=== PATIENT | male | born 1980 | race Caucasian/White ===

== ENCOUNTER 2019-08-06 17:16 | Emergency (ER) | payer SELFPAY ==
[2019-08-06 17:57] VITALS: BP 127/72; PULSE 59; RESP 26; TEMP 36.4; O2SAT 100; BMI 22.4
--- NOTE | 2019-08-06 18:07 | ED_ITS ---
Entered by Padmaja Michaud, acting as scribe for Juan Bryan MD, [facility] [place] Aug 06, 2019 17:16 HPI - Allergic Reaction General: Chief complaint: Allergic Reaction Stated complaint: ABD PAIN, POSS REACTION Time Seen by Provider: 08/06/19 18:07 Source: patient Mode of arrival: ambulatory Limitations: no limitations History of Present Illness: HPI narrative: 39 yo Male presents to ED with complaint of vomiting, diarrhea, and jaundice. Pt's caregiver states that the patient has had chills and been lightheaded. Pt states he has body aches. Pt's caregiver states that she looked it up on the [facility] website and she believes that the patient may be having an allergic reaction to tylenol. Pt's caregiver states that the last time the patient had an episode like this, the patient had taken tylenol. complaint: allergic reaction and other (vomiting, diarrhea, jaundice) Onset (ago): hour(s) Exposure: unknown Associated symptoms: Reports abdominal pain, dizziness and vomiting; Deny hoarseness Severity: moderate Treatment prior to arrival: none Previous Allergic Reaction History: prior ED visit(s) Review of Systems General: Reports: 10 or more systems reviewed and unremarkable except in HPI and below Const: Reports: chills and body aches; Denies: fever Eyes: Denies: change in vision or blurry vision ENMT: Denies: throat pain, enlarged tonsils, painful swallowing, hoarseness, mouth pain or swelling of lips/tongue Card: Denies: chest pain, palpitations, irregular heart rhythm, edema or swelling of feet/ankles Resp: Denies: shortness of breath, productive cough or non-productive cough GI: Reports: abdominal pain and vomiting : Denies: flank pain, painful urination, urinary frequency, urinary urgency or urinary hesitancy Musc: Denies: neck pain, back pain or extremity swelling Skin/Breast: Denies: rash, itching or redness Neuro: Reports: dizziness Endo: Denies: excessive urination, excessive thirst or tired all the time [facility] ED PFSH: Social History Smoking and tobacco status: current every day smoker Physical Exam Const: COMMON NORMALS: average body habitus, oriented x3, no limitations, healthy appearing, alert and well nourished GENERAL APPEARANCE: in distress and ill appearing HENMT: COMMON NORMALS: normocephalic, head/scalp atraumatic and moist oral mucous membranes HEAD & SCALP: normocephalic and atraumatic Eye: COMMON NORMALS: PERRL, EOMs intact bilaterally, conjunctivae normal and no scleral icterus CONJUNCTIVA: Yes conjunctivae normal PUPIL: Yes PERRL Neck/C-Spine: COMMON NORMALS: full ROM, supple, no meningeal signs, no JVD and no carotid bruits Chest: COMMONS NORMALS: inspection of chest normal and palpation of chest normal Resp: COMMON NORMALS: normal respiratory effort, no retractions, no use of accessory muscles, clear to auscultation bilaterally and percussion normal AUSCULTATION: clear to auscultation bilaterally PERCUSSION: percussion normal Cardio: COMMON NORMALS: no JVD, regular rate, regular rhythm, S1 normal heart sound, S2 normal heart sound, no gallops, no clicks, no murmurs, no rub and peripheral pulses 2+ throughout RATE: regular rate RHYTHM: regular rhythm HEART SOUNDS: S1 normal and S2 normal PERIPHERAL PULSES: pulses 2+ throughout GI: COMMON NORMALS: normal to inspection, nondistended, normoactive bowel sounds, soft to palpation, no hepatosplenomegaly, no masses and no bruits PALPATION: Yes soft, Yes tender (epigastric) and Yes no hepatosplenomegaly : COMMON NORMALS: Yes no CVA tenderness BLADDER/KIDNEY EXAM: Yes no CVA tenderness Back/Pelvis: COMMON NORMALS: no CVA tenderness Extremity: COMMON NORMALS: normal to inspection, full ROM, normal capillary refill, no calf tenderness and no pedal edema Neuro: COMMON NORMALS: oriented x3 SENSORIUM/ORIENTATION: Yes alert M ENINGEAL SIGNS: Yes no meningeal signs Skin: COMMON NORMALS: no rashes or lesions noted, no wounds, skin turgor normal, no jaundice, no petechiae and no mottling GENERAL SKIN EXAM: no rashes or lesions noted and turgor normal Course Vital Signs: Vital signs: Vital Signs Temperature 97.5 F L 08/06/19 17:57 Pulse Rate 55 L 08/06/19 23:04 Respiratory Rate 18 08/06/19 23:04 Blood Pressure 143/71 08/06/19 23:04 Pulse Oximetry 100 08/06/19 23:04 MDM - Allergic Reaction MDM Narrative: Medical decision making narrative: Patient with symptoms consistent with cannabinoid hyperemesis syndrome. Also probably has gastritis. He is advised to follow-up with his primary care provider for referral for colonoscopy. He was dehydrated here and received 2 L of normal saline. He also received couple of doses of antiemetics after which his symptoms improved. He is discharged home on oral antiemetics. Medical Records: Attestation: I reviewed the patient's medical records. Lab Data: Attestation: I reviewed the patient's lab results. Labs: Lab Results 08/06/19 08/06/19 08/06/19 Range/Units 18:10 18:10 21:11 WBC 8.4 (4.0-10.0) 10^3/ uL RBC 5.23 (4.1-5.3) 10^6/u L Hgb 17.2 H (11.7-16.6) g/dL Hct 48.8 (42.0-52.0) % MCV 93.3 (80-94) fL MCH 32.9 (28.0-34.0) pg MCHC 35.2 (30.0-36.0) g/dL RDW 12.3 (12.1-15.1) % Plt Count 192 (130-400) 10^3/c mm MPV 11.0 H (7.4-10.4) fL Neut % (Auto) 79.0 % Lymph % (Auto) 12.3 % Sumter % (Auto) 8.0 % Eos % (Auto) 0.1 % Baso % (Auto) 0.1 % Neut # (Auto) 6.6 (1.8-7.7) 10^3/u L Lymph # (Auto) 1.0 (0.8-4.8) 10^3/u L Sumter # (Auto) 0.7 (0.2-0.9) 10^3/u L Eos # (Auto) 0.0 (0.0-0.8) 10^3/u L Baso # (Auto) 0.0 (0.0-0.1) 10^3/u L Nucleated RBC % (a uto) 0 % Nucleated RBCs # 0.0 /100WBC Sodium 131 L (136-145) mmol/L Potassium 3.6 (3.5-5.1) mmol/L Chloride 92 L (98-107) mmol/L Carbon Dioxide 18 L (22-29) mmol/L Anion Gap 24.6 H (5-19) BUN 19 (6-20) mg/dL Creatinine 1.2 (0.7-1.2) mg/dL GFR Calculation 66.7 L (90-130) mL/min Glucose 136 H (65-115) mg/dL Calcium 9.8 (8.5-10.5) mg/dL Total Bilirubin 0.5 (0.15-1.2) mg/dL AST 28 (0-40) U/L ALT 12 (0-41) U/L Alkaline Phosphata se 49 (40-130) IU/L Total Protein 7.5 (6.6-8.7) g/dL Albumin 4.7 (3.5-5.2) g/dL Globulin 2.8 (1.3-4.6) g/dL Lipase 27 (13-60) U/L Urine Color Yellow (Yellow) Urine Appearance Clear (CLEAR) Urine pH 6.5 (5-7) Ur Specific Gravit y 1.005 (1.005-1.030) Urine Protein 1+ H (Negative) Urine Glucose (UA) Norm (Normal) Urine Ketones 2+ H (Negative) Urine Blood Neg (Negative) Urine Nitrate Negative (Negative) Urine Bilirubin 1+ H (NEGATIVE) Urine Urobilinogen 1 H (Negative) mg/dL Ur Leukocyte Alexandra ase Negative (Negative) Urine RBC 0-4 H (0-2) /hpf Urine WBC 0-4 H (0-5) /hpf Ur Squamous Epith Cells 0-4 H (0-5) Urine Bacteria 1+ H (NONE) Urine Mucus 1+ Urine Opiates Scre en (Negative) ng/mL Acetaminophen < 5.0 L (10-30) ug/mL Ur Barbiturates Sc reen (Negative) ng/mL Ur Phencyclidine S crn (Negative) ng/mL Ur Amphetamines Sc reen (Negative) ng/mL U Benzodiazepines Scrn (Negative) ng/mL Urine Cocaine Scre en (Negative) ng/mL U Marijuana (THC) Screen (Negative) ng/mL 08/06/19 Range/Units 21:11 WBC (4.0-10.0) 10^3/ uL RBC (4.1-5.3) 10^6/u L Hgb (11.7-16.6) g/dL Hct (42.0-52.0) % MCV (80-94) fL MCH (28.0-34.0) pg MCHC (30.0-36.0) g/dL RDW (12.1-15.1) % Plt Count (130-400) 10^3/c mm MPV (7.4-10.4) fL Neut % (Auto) % Lymph % (Auto) % Sumter % (Auto) % Eos % (Auto) % Baso % (Auto) % Neut # (Auto) (1.8-7.7) 10^3/u L Lymph # (Auto) (0.8-4.8) 10^3/u L Sumter # (Auto) (0.2-0.9) 10^3/u L Eos # (Auto) (0.0-0.8) 10^3/u L Baso # (Auto) (0.0-0.1) 10^3/u L Nucleated RBC % (a uto) % Nucleated RBCs # /100WBC Sodium (136-145) mmol/L Potassium (3.5-5.1) mmol/L Chloride (98-107) mmol/L Carbon Dioxide (22-29) mmol/L Anion Gap (5-19) BUN (6-20) mg/dL Creatinine (0.7-1.2) mg/dL GFR Calculation (90-130) mL/min Glucose (65-115) mg/dL Calcium (8.5-10.5) mg/dL Total Bilirubin (0.15-1.2) mg/dL AST (0-40) U/L ALT (0-41) U/L Alkaline Phosphata se (40-130) IU/L Total Protein (6.6-8.7) g/dL Albumin (3.5-5.2) g/dL Globulin (1.3-4.6) g/dL Lipase (13-60) U/L Urine Color (Yellow) Urine Appearance (CLEAR) Urine pH (5-7) Ur Specific Gravit y (1.005-1.030) Urine Protein (Negative) Urine Glucose (UA) (Normal) Urine Ketones (Negative) Urine Blood (Negative) Urine Nitrate (Negative) Urine Bilirubin (NEGATIVE) Urine Urobilinogen (Negative) mg/dL Ur Leukocyte Alexandra ase (Negative) Urine RBC (0-2) /hpf Urine WBC (0-5) /hpf Ur Squamous Epith Cells (0-5) Urine Bacteria (NONE) Urine Mucus Urine Opiates Scre en Negative (Negative) ng/mL Acetaminophen (10-30) ug/mL Ur Barbiturates Sc reen Negative (Negative) ng/mL Ur Phencyclidine S crn Negative (Negative) ng/mL Ur Amphetamines Sc reen Negative (Negative) ng/mL U Benzodiazepines Scrn Negative (Negative) ng/mL Urine Cocaine Scre en Negative (Negative) ng/mL U Marijuana (THC) Screen Positive H (Negative) ng/mL Imaging Data^: CT Abd/Pel: Radiologist's impression: [place] [address] CT Scan Report Signed Patient: Ramos Marin #: [id number] : 1980Acct#:[id number] Age/Sex: 39 / MADM Date: 08/06/19 Loc: ERRoom/Bed: Attending Dr: Ordering Provider/Ordering MD: Juan Bryan MD, [facility] [place] Date of Service: 08/06/19 Procedure(s): CT abdomen pelvis w con* [id number] Accession Number(s): [id number] Report Number: [id number] PROCEDURE INFORMATION: Exam: CT Abdomen And Pelvis With Contrast Exam date and time: 08/06/2019 6:55 PM Age: 39 years old Clinical indication: Nausea and vomiting; Abdominal pain; Epigastric; Additional info: Epigastric pain TECHNIQUE: Imaging protocol: Computed tomography of the abdomen and pelvis with intravenous contrast. Total DLP: 504.95 mGy-cm Radiation optimization: All CT scans at this facility use at least one of these dose optimization techniques: automated exposure control; mA and/or kV adjustment per patient size (includes targeted exams where dose is matched to clinical indication); or iterative reconstruction. Contrast material: OMNI 300; Contrast volume: 95 ml; Contrast route: IV; COMPARISON: CT abdomen pelvis w con* [id number] 03/30/2019 4:50 AM FINDINGS: Liver: Normal. No mass. Gallbladder and bile ducts: Normal. No calcified stones. No ductal dilation. Pancreas: Normal. No ductal dilation. Spleen: Normal. No splenomegaly. Adrenals: Normal. No mass. Kidneys and ureters: Normal. No hydronephrosis. Stomach and bowel: Mild wall thickening is observed in the gastric antrum. No intestinal obstruction. Appendix: No evidence of appendicitis. Intraperitoneal space: Unremarkable. No free air. No significant fluid collection. Vasculature: Unremarkable. No abdominal aortic aneurysm. Lymph nodes: Unremarkable. No enlarged lymph nodes. Bladder: Unremarkable as visualized. Reproductive: Unremarkable as visualized. Bones/joints: Unremarkable. No acute fracture. Soft tissues: Unremarkable. CT/CT abdomen pelvis w con* [id number] IMPRESSION: Possible mild gastric antritis, correlate clinically. Radiation Dose CTDIVOL = (mGy): DLP = 504.95 (mGy-cm) Dictated By:Percy Tovar MD Signed By:Percy Tovar MDSigned Date/Time:08/06/191946 DD/ 44 Discharge Plan Discharge Patient Disposition: Home, Self-Care Clinical Impression: Cannabis hyperemesis syndrome concurrent with and due to cannabis abuse Gastritis Qualifiers: Gastritis type: unspecified gastritis Chronicity: acute Gastritis bleeding: without bleeding Qualified Code(s): K29.00 - Acute gastritis without bleeding Condition: Stable Prescriptions: New promethazine 25 mg tablet 25 mg PO TID PRN (Reason: nausea and vomiting) Qty: 30 RF: 0 Discharge Orders: Discharge Order (Routine); Ordered 08/06/19 Ordered By: Juan Bryan Referrals: Kyra Mcbride FNP-C [Primary Care Provider] - 4-7 days Patient Instructions: Acute Nausea and Vomiting (ED) Activity Restrictions/Additional Instructions: Return for any new or worsening symptoms. Follow-up with your primary care provider within 1 week. Take the medication as needed for nausea or vomiting. Drink plenty of fluids to keep well-hydrated. 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 [place] Aug 06, 2019 17:16
[2019-08-06 18:12] VITALS: O2SAT 100
--- NOTE | 2019-08-06 18:34 | CTR_ITS ---
PROCEDURE INFORMATION: Exam: CT Abdomen And Pelvis With Contrast Exam date and time: 08/06/2019 6:55 PM Age: 39 years old Clinical indication: Nausea and vomiting; Abdominal pain; Epigastric; Additional info: Epigastric pain TECHNIQUE: Imaging protocol: Computed tomography of the abdomen and pelvis with intravenous contrast. Total DLP: 504.95 mGy-cm Radiation optimization: All CT scans at this facility use at least one of these dose optimization techniques: automated exposure control; mA and/or kV adjustment per patient size (includes targeted exams where dose is matched to clinical indication); or iterative reconstruction. Contrast material: OMNI 300; Contrast volume: 95 ml; Contrast route: IV; COMPARISON: CT abdomen pelvis w con* [id number] 03/30/2019 4:50 AM FINDINGS: Liver: Normal. No mass. Gallbladder and bile ducts: Normal. No calcified stones. No ductal dilation. Pancreas: Normal. No ductal dilation. Spleen: Normal. No splenomegaly. Adrenals: Normal. No mass. Kidneys and ureters: Normal. No hydronephrosis. Stomach and bowel: Mild wall thickening is observed in the gastric antrum. No intestinal obstruction. Appendix: No evidence of appendicitis. Intraperitoneal space: Unremarkable. No free air. No significant fluid collection. Vasculature: Unremarkable. No abdominal aortic aneurysm. Lymph nodes: Unremarkable. No enlarged lymph nodes. Bladder: Unremarkable as visualized. Reproductive: Unremarkable as visualized. Bones/joints: Unremarkable. No acute fracture. Soft tissues: Unremarkable. CT/CT abdomen pelvis w con* [id number] IMPRESSION: Possible mild gastric antritis, correlate clinically. Radiation Dose CTDIVOL = (mGy): DLP = 504.95 (mGy-cm)
[2019-08-06 18:46] LABS: Basophils % 0.1 %; Eosinophils % 0.1 %; Hematocrit 48.8 % (42.0-52.0); Hemoglobin 17.2 g/dL (11.7-16.6); Lymphocytes % 12.3 %; Mean Corpuscular HGB Conc 35.2 g/dL (30.0-36.0); Mean Corpuscular Hemoglobin 32.9 pg (28.0-34.0); Mean Corpuscular Volume 93.3 fL (80-94); Monocytes # 0.7 10^3/uL (0.2-0.9); Neutrophils # 6.6 10^3/uL (1.8-7.7); Nucleated Red Blood Cells % 0 %; Platelet Count 192 10^3/cmm (130-400); Red Blood Count 5.23 10^6/uL (4.1-5.3); Red Cell Distribution Width 12.3 % (12.1-15.1); White Blood Count 8.4 10^3/uL (4.0-10.0)
[2019-08-06] MEDS: ondansetron 2 mg/ML SDV 2 mL 4 MG IVP (18:50)
[2019-08-06] MEDS: famotidine 20 mg/2 mL INJ 40 MG IVP (18:50)
[2019-08-06 19:07] LABS: Alanine Aminotransferase 12 U/L (0-41); Albumin Level 4.7 g/dL (3.5-5.2); Alkaline Phosphatase 49 IU/L (40-130); Anion Gap 24.6 (5-19); Aspartate Amino Transferase 28 U/L (0-40); Blood Urea Nitrogen 19 mg/dL (6-20); Calcium 9.8 mg/dL (8.5-10.5); Carbon Dioxide 18 mmol/L (22-29); Chloride 92 mmol/L (98-107); Globulin 2.8 g/dL (1.3-4.6); Glomerular Filtration Rate 66.7 mL/min (90-130); Glucose 136 mg/dL (65-115); Lipase 27 U/L (13-60); Potassium 3.6 mmol/L (3.5-5.1); Sodium 131 mmol/L (136-145); Total Bilirubin 0.5 mg/dL (0.15-1.2); Total Protein 7.5 g/dL (6.6-8.7)
[2019-08-06] MEDS: iohexol 300 mg/mL 100 mL Btl IV (19:11)
[2019-08-06] MEDS: sodium chloride 0.9% 1,000 ML 999 ML IV ×2 (19:25→21:08)
[2019-08-06 19:32] LABS: Acetaminophen < 5.0 ug/mL (10-30)
[2019-08-06] MEDS: metoclopramide 5 mg/mL SDV 2 mL 10 MG IVP (19:45)
[2019-08-06 21:38] LABS: Add Urine Culture? No; Add Urine Microscopic? YES; Bacteria Urine 1+; Bilirubin Urine 1+ (NEGATIVE); Blood Urine Neg (Negative); Glucose Urine UA Norm (Normal); Ketones Urine 2+ (Negative); Leukocyte Esterase Urine Negative (Negative); Mucus Urine 1+; Nitrate Urine Negative (Negative); Protein Urine 1+ (Negative); RBC Urine 0-4 /hpf (0-2); Specific Gravity, Urine 1.005 (1.005-1.030); Squamous Epithelial Cell Urine 0-4 (0-5); Urine Appearance Clear (CLEAR); Urine Color Yellow (Yellow); Urobilinogen Urine 1 mg/dL (Negative); WBC Urine 0-4 /hpf (0-5); pH Urine 6.5 (5-7)
[2019-08-06 21:40] VITALS: BP 118/68; PULSE 72; RESP 18; O2SAT 99
[2019-08-06 21:55] LABS: Amphetamines Screen Urine Negative (Negative); Barbiturates Screen Urine Negative (Negative); Benzodiazepines Screen Urine Negative (Negative); Cocaine Screen Urine Negative (Negative); Opiate Screen Urine Negative (Negative); PCP Screen Urine Negative (Negative); THC Screen Urine Positive (Negative)
[2019-08-06 23:04] VITALS: BP 143/71; PULSE 55; RESP 18; O2SAT 100
== END 2019-08-06 23:05 | disposition home or self-care (01) ==
PROVIDERS: Emergency Provider Family Medicine; Family Provider Nurse Practitioner Family; PCP Nurse Practitioner Family
DX: R11.10 Vomiting, unspecified (principal); F12.188 Cannabis abuse with other cannabis-induced disorder; K29.70 Gastritis, unspecified, without bleeding; F17.200 Nicotine dependence, unspecified, uncomplicated
CPT/HCPCS: 74177; 80053; 80307; 81001; 83690; 85025; 96360; 96361; 96374; 96375; 99283; A9270; J2405; J2765; J3490; J7030; Q9967

== ENCOUNTER 2021-11-09 10:23 | Emergency (ER) | payer SELFPAY ==
[2021-11-09 10:37] VITALS: BP 170/76; PULSE 50; RESP 22; O2SAT 100; BMI 24.4
--- NOTE | 2021-11-09 10:54 | CTR_ITS ---
PROCEDURE INFORMATION: Exam: CTA Chest With Contrast Exam date and time: 11/09/2021 12:02 PM Age: 41 years old Clinical indication: Abdominal pain; Generalized; Chest pressure; Additional info: Chest/abd pain look at the aorta TECHNIQUE: Imaging protocol: Computed tomographic angiography of the chest with contrast. 3D rendering (Not supervised by radiologist): MIP and/or 3D reconstructed images were created by the technologist. Radiation optimization: All CT scans at this facility use at least one of these dose optimization techniques: automated exposure control; mA and/or kV adjustment per patient size (includes targeted exams where dose is matched to clinical indication); or iterative reconstruction. Contrast material: OMNI 350; Contrast volume: 95 ml; Contrast route: INTRAVENOUS (IV); COMPARISON: [place] Chest 1 [place] [id number] 03/30/2019 3:56 AM RADIATION DOSE METRICS: Total DLP (mGy-cm): 1348.36 FINDINGS: No evidence for pulmonary embolus. Thoracic aorta is normal without evidence for dissection or aneurysm. Lungs are normal. No consolidation. No pneumothorax. No pleural effusion. Heart size is normal. Bones/joints: Unremarkable. No acute fracture. Soft tissues: Unremarkable. PROCEDURE INFORMATION: Exam: CT Abdomen And Pelvis With Contrast Exam date and time: 11/09/2021 12:02 PM Age: 41 years old Clinical indication: Abdominal pain; Generalized; Chest pressure; Additional info: Chest/abd pain look at the aorta TECHNIQUE: Imaging protocol: Computed tomography of the abdomen and pelvis with contrast. 3D rendering (Not supervised by radiologist): MIP and/or 3D reconstructed images were created and reviewed. Radiation optimization: All CT scans at this facility use at least one of these dose optimization techniques: automated exposure control; mA and/or kV adjustment per patient size (includes targeted exams where dose is matched to clinical indication); or iterative reconstruction. Contrast material: OMNI 350; Contrast volume: 95 ml; Contrast route: INTRAVENOUS (IV); COMPARISON: CT abdomen pelvis w con* [id number] 08/06/2019 7:24 PM RADIATION DOSE METRICS: Total DLP (mGy-cm): 1348.36 FINDINGS: Aorta: No aortic aneurysm. No aortic dissection. Celiac trunk and mesenteric arteries: No occlusion or significant stenosis. Renal arteries: No occlusion or significant stenosis. Right iliac arteries: No occlusion or significant stenosis. Left iliac arteries: No occlusion or significant stenosis. Liver: No mass. Gallbladder and bile ducts: Unremarkable. No calcified stones. No ductal dilation. Pancreas: Unremarkable. No mass. No ductal dilation. Spleen: Small incidental splenule. Adrenal glands: Unremarkable. No mass. Kidneys and ureters: Unremarkable. No solid mass. No hydronephrosis. Stomach and bowel: Unremarkable. No obstruction. No mucosal thickening. Appendix: A normal appendix is identified. Intraperitoneal space: Unremarkable. No free air. No significant fluid collection. Lymph nodes: Unremarkable. No enlarged lymph nodes. Urinary bladder: Unremarkable. No mass. Reproductive: Unremarkable as visualized. Bones/joints: No acute fracture. Soft tissues: Unremarkable. CT/CT angio chest abdomen pelvis IMPRESSION: No acute findings. No evidence for pulmonary embolus. Thoracic aorta is normal. IMPRESSION: No acute findings.
--- NOTE | 2021-11-09 10:55 | ECG_ITS ---
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 Measurements Intervals [place] Rate: 48 P: 54 FL: 159 QRS: 73 QRSD: 122 T: 56 QT: 481 QTc: 432 Interpretive Statements SINUS BRADYCARDIA WITH SINUS ARRHYTHMIA RIGHT BUNDLE BRANCH BLOCK [120+ ms QRS DURATION, UPRIGHT V1, 40+ ms S IN I/aVL/V4/V5/V6] PROBABLE INFERIOR MYOCARDIAL INFARCTION , PROBABLY OLD [35 ms Q WAVE IN II/aVF] Compared to ECG 03/30/2019 09:55:54 Right bundle-branch block now present Sinus rhythm no longer present Ventricular premature complex(es) no longer present Incomplete right bundle-branch block no longer present Myocardial infarct finding still present Electronically Signed On 11-09-2021 20:26:38 CDT by Yunior Lara M.D. [email or web address]
--- NOTE | 2021-11-09 10:55 | W.ED.SOB ---
HPI - SOB/Dyspnea General: Chief Complaint: Shortness of Breath/Dyspnea Stated Complaint: SOB; L arm tingling; n/v Time Seen by Provider: 11/09/21 10:50 History of Present Illness: HPI Narrative: 41-year-old presents due to chest pain abdominal pain shortness of breath. States this started this morning. Left-sided chest and both upper and lower abdominal pain. States it is achy. Does report nausea and nonbloody nonbilious emesis. Denies any exertional pleuritic component. Denies any radiation. Denies any lower extremity pain or swelling. Denies fevers or chills. Does admit to drinking about 2 tall boys per day. Also has noted yellowing of skin. Denies any dysuria or urethral discharge. Review of Systems Narrative: - CONSTITUTIONAL: Denies weight loss, fever and chills. - HEENT: Denies changes in vision and hearing. - RESPIRATORY: As above - CV: As above - GI: As above - : Denies dysuria and urinary frequency. - MSK: Denies myalgia and joint pain. - SKIN: Denies rash and pruritus. - NEUROLOGICAL: Denies headache, weakness, numbness and syncope. - PSYCHIATRIC: Denies suicidal ideation [facility] ED PFSH: Social History Smoking and tobacco status: current every day smoker Physical Exam Narrative: EXAM NARRATIVE: - GENERAL: Alert and oriented x 3. No acute distress. Well-nourished. - EYES: EOMI. Anicteric. - HENT: Atraumatic, no C-spine tenderness. Moist mucous membranes. No scleral icterus. No cervical lymphadenopathy. - LUNGS: Clear to auscultation bilaterally. No accessory muscle use. Equal lung sounds bilaterally. No respiratory distress. - CARDIOVASCULAR: Regular rate and rhythm. No murmur. No JVD. - ABDOMEN: Soft, tender in left upper and lower quadrants, non-distended. Negative CVA tenderness bilaterally, no rebound or guarding, negative Patterson sign. No palpable masses. - EXTREMITIES: No edema. Non-tender. - SKIN: No rashes or lesions. Warm. Mildly jaundiced. - NEUROLOGIC: No meningismus or focal neurological deficits. CN II-XII grossly intact. - PSYCHIATRIC: Cooperative. Appropriate mood and affect. Course Vital Signs: Vital signs: Vital Signs Pulse Rate 45 L 11/09/21 13:41 Respiratory Rate 16 11/09/21 13:41 Blood Pressure 142/86 11/09/21 13:41 Pulse Oximetry 100 11/09/21 13:41 MDM - SOB/Dyspnea Medical Decision Making 41-year-old presents with chest pain abdominal pain nausea and nonbloody nonbilious emesis. Initially appears mildly jaundiced but bilirubin is within normal. Remainder of LFTs are also within normal. EKG and troponins do not reveal any sign of acute ischemic abnormality. CT scan does not reveal any sign of dissection PE obstruction or other acute abnormality. UDS positive for cannabinoids. Strongly suspect cyclic vomiting syndrome. Remainder of lab work unremarkable. Prescription for Reglan provided. Tolerated p.o. challenge. At this time I believe patient would be safe for discharge and outpatient follow-up. Return precautions provided. Plan was reviewed with the patient who expressed understanding. Questions answered. Patient will follow up with PCP. Patient discharged in stable condition. Lab Data : 11/09/21 10:50 11/09/21 10:50 Labs/Radiology: Radiology Impressions Chest/Abdomen/Pelvis CTA 11/09/21 10:54 IMPRESSION: No acute findings. No evidence for pulmonary embolus. Thoracic aorta is normal. IMPRESSION: No acute findings. Laboratory Results WBC 10.4 10^3/uL (4.0-10.0) H 11/09/21 10:50 RBC 5.28 10^6/uL (4.1-5.3) 11/09/21 10:50 Hgb 17.3 g/dL (11.7-16.6) H 11/09/21 10:50 Hct 48.6 % (42.0-52.0) 11/09/21 10:50 MCV 92.0 fl (80-94) 11/09/21 10:50 MCH 32.8 pg (28.0-34.0) 11/09/21 10:50 MCHC 35.6 g/dL (30.0-36.0) 11/09/21 10:50 RDW 13.5 % (12.1-15.1) 11/09/21 10:50 Plt Count 239 10^3/cmm (130-400) 11/09/21 10:50 MPV 10.7 fL (7.4-10.4) H 11/09/21 10:50 Neut % (Auto) 77.3 % 11/09/21 10:50 Lymph % (Auto) 17.2 % 11/09/21 10:50 [place] % (Auto) 3.8 % 11/09/21 10:50 Eos % (Auto) 0.6 % 11/09/21 10:50 Baso % (Auto) 0.5 % 11/09/21 10:50 Neut # (Auto) 8.04 10^3/uL (1.8-7.7) H 11/09/21 10:50 Lymph # (Auto) 1.8 10^3/uL (0.8-4.8) 11/09/21 10:50 [place] # (Auto) 0.4 10^3/uL (0.2-0.9) 11/09/21 10:50 Eos # (Auto) 0.1 10^3/uL (0.0-0.8) 11/09/21 10:50 Baso # (Auto) 0.1 10^3/uL (0.0-0.1) 11/09/21 10:50 Nucleated RBC % (auto) 0 % 11/09/21 10:50 Nucleated RBCs # 0.0 /100WBC 11/09/21 10:50 Sodium 135 mmol/L (136-145) L 11/09/21 10:50 Potassium 3.9 mmol/L (3.5-5.1) 11/09/21 10:50 Chloride 99 mmol/L (98-107) 11/09/21 10:50 Carbon Dioxide 17 mmol/L (22-29) L 11/09/21 10:50 Anion Gap 22.9 (5-19) H 11/09/21 10:50 BUN 13 mg/dL (6-20) 11/09/21 10:50 Creatinine 1.1 mg/dL (0.7-1.2) 11/09/21 10:50 GFR Calculation 73.1 mL/min (90-130) L 11/09/21 10:50 Glucose 121 mg/dL (65-115) H 11/09/21 10:50 Calculated Osmolality 281 mOsm/kg (285-295) L 11/09/21 10:50 Lactate 2.0 mmol/L (0.5-2.2) 11/09/21 11:25 Calcium 9.9 mg/dL (8.5-10.5) 11/09/21 10:50 Total Bilirubin 0.7 mg/dL (0.15-1.2) 11/09/21 10:50 AST 21 U/L (0-40) 11/09/21 10:50 ALT 15 U/L (0-41) 11/09/21 10:50 Alkaline Phosphatase 58 IU/L (40-130) 11/09/21 10:50 Troponin T Baseline 6 ng/L (0-15) 11/09/21 10:50 Troponin T 120 Minute 6.00 ng/L (0-15) 11/09/21 12:57 Delta Troponin T 0 ABS# (0-10) 11/09/21 12:57 Total Protein 7.5 g/dL (6.6-8.7) 11/09/21 10:50 Albumin 4.9 g/dL (3.5-5.2) 11/09/21 10:50 Globulin 2.6 g/dL (1.3-4.6) 11/09/21 10:50 Lipase 21 U/L (13-60) 11/09/21 10:50 Urine Color Yellow (Yellow) 11/09/21 13:35 Urine Appearance Clear (CLEAR) 11/09/21 13:35 Urine pH 7 (5-7) 11/09/21 13:35 Ur Specific [place] 1.005 (1.005-1.030) 11/09/21 13:35 Urine Protein Neg (Negative) 11/09/21 13:35 Urine Glucose (UA) Norm (Normal) 11/09/21 13:35 Urine Ketones 1+ (Negative) H 11/09/21 13:35 Urine Blood Neg (Negative) 11/09/21 13:35 Urine Nitrate Negative (Negative) 11/09/21 13:35 Urine Bilirubin Neg (Negative) 11/09/21 13:35 Urine Urobilinogen Norm mg/dL (Negative) 11/09/21 13:35 Ur Leukocyte Esterase Negative (Negative) 11/09/21 13:35 Urine RBC None /hpf (0-2) 11/09/21 13:35 Urine WBC Rare /hpf (0-5) 11/09/21 13:35 Ur Squamous Epith Cells None /hpf (0-5) 11/09/21 13:35 Amorphous Sediment Not Reportable 11/09/21 13:35 Urine Bacteria Trace /hpf (NONE) 11/09/21 13:35 Urine Opiates Screen Negative ng/mL (Negative) 11/09/21 13:35 Ur Barbiturates Screen Negative ng/mL (Negative) 11/09/21 13:35 Ur Phencyclidine Scrn Negative ng/mL (Negative) 11/09/21 13:35 Ur Amphetamines Screen Negative ng/mL (Negative) 11/09/21 13:35 U Benzodiazepines Scrn Negative ng/mL (Negative) 11/09/21 13:35 Urine Cocaine Screen Negative ng/mL (Negative) 11/09/21 13:35 U Marijuana (THC) Screen Positive ng/mL (Negative) H 11/09/21 13:35 EKG Data EKG 1: Other EKG Comments: Sinus bradycardia with sinus arrhythmia, rate of 48, with bundle branch block, no sign of acute ischemia or other acute abnormality. Discharge Plan Discharge Patient Disposition: Home Clinical Impression: Cyclic vomiting syndrome Condition: Stable Prescriptions: New Reglan 10 mg tablet 10 mg PO Q8H 3 Days Qty: 9 0RF No Action promethazine 25 mg tablet 25 mg PO TID PRN (Reason: nausea and vomiting) Qty: 30 0RF Discharge Orders: Discharge ED (Routine); Ordered 11/09/21 Ordered By: Derrick Keller Referrals: Kyra Mcbride FNP-C [Primary Care Provider] - 1-3 days Patient Instructions: Cyclic Vomiting Syndrome (ED), Opioid Safety Coding Level of Care Code ED [employer] for [employer]
[2021-11-09 11:15] VITALS: BP 146/89; PULSE 49; RESP 16; O2SAT 100
[2021-11-09 11:16] LABS: Basophils # 0.1 10^3/uL (0.0-0.1); Basophils % 0.5 %; Eosinophils # 0.1 10^3/uL (0.0-0.8); Eosinophils % 0.6 %; Hematocrit 48.6 % (42.0-52.0); Hemoglobin 17.3 g/dL (11.7-16.6); Lymphocytes # 1.8 10^3/uL (0.8-4.8); Lymphocytes % 17.2 %; Mean Corpuscular HGB Conc 35.6 g/dL (30.0-36.0); Mean Corpuscular Hemoglobin 32.8 pg (28.0-34.0); Mean Platelet Volume 10.7 fL (7.4-10.4); Monocytes # 0.4 10^3/uL (0.2-0.9); Monocytes % 3.8 %; Neutrophils # 8.04 10^3/uL (1.8-7.7); Neutrophils % 77.3 %; Nucleated Red Blood Cells % 0 %; Platelet Count 239 10^3/cmm (130-400); Red Blood Count 5.28 10^6/uL (4.1-5.3); Red Cell Distribution Width 13.5 % (12.1-15.1); White Blood Count 10.4 10^3/uL (4.0-10.0)
[2021-11-09] MEDS: ondansetron 2 mg/ML SDV 2 mL 4 MG IVP ×2 (11:30→13:40)
[2021-11-09] MEDS: sodium chloride 0.9% 1,000 ML 999 ML IV (11:30)
[2021-11-09 11:36] LABS: Troponin(5th) Baseline 6 ng/L (0-15)
--- NOTE | 2021-11-09 11:37 | PC.NURSE ---
Patient refused covid test. Patient family member at bedside provided with gown and mask due to patient being a rule out.
[2021-11-09 11:38] LABS: Alanine Aminotransferase 15 U/L (0-41); Albumin Level 4.9 g/dL (3.5-5.2); Alkaline Phosphatase 58 IU/L (40-130); Anion Gap 22.9 (5-19); Aspartate Amino Transferase 21 U/L (0-40); Blood Urea Nitrogen 13 mg/dL (6-20); Calcium 9.9 mg/dL (8.5-10.5); Carbon Dioxide 17 mmol/L (22-29); Chloride 99 mmol/L (98-107); Globulin 2.6 g/dL (1.3-4.6); Glomerular Filtration Rate 73.1 mL/min (90-130); Glucose 121 mg/dL (65-115); Lipase 21 U/L (13-60); Osmolality Calculated 281 mOsm/kg (285-295); Potassium 3.9 mmol/L (3.5-5.1); Sodium 135 mmol/L (136-145); Total Bilirubin 0.7 mg/dL (0.15-1.2); Total Protein 7.5 g/dL (6.6-8.7)
[2021-11-09] MEDS: iohexol 350 mg/mL 100 mL Btl IV (12:02)
[2021-11-09 13:03] VITALS: BP 164/88; PULSE 51; RESP 14; O2SAT 100
--- NOTE | 2021-11-09 13:03 | PC.NURSE ---
Reminded patient that we needed urine sample, he states he can't at this time.
[2021-11-09 13:41] VITALS: BP 142/86; PULSE 45; RESP 16; O2SAT 100
[2021-11-09 13:55] LABS: Troponin 5 2HR Delta 0 ABS# (0-10)
[2021-11-09 14:03] LABS: Bilirubin Urine Neg (Negative); Blood Urine Neg (Negative); Glucose Urine UA Norm (Normal); Ketones Urine 1+ (Negative); Leukocyte Esterase Urine Negative (Negative); Nitrate Urine Negative (Negative); Protein Urine Neg (Negative); Specific Gravity, Urine 1.005 (1.005-1.030); Urine Appearance Clear (CLEAR); Urine Color Yellow (Yellow); Urobilinogen Urine Norm (Negative); pH Urine 7 (5-7)
[2021-11-09 14:04] LABS: Add Urine Culture? No; Bacteria Urine TRACE /hpf; WBC Urine RARE /hpf (0-5)
[2021-11-09 14:05] LABS: Amphetamines Screen Urine Negative (Negative); Barbiturates Screen Urine Negative (Negative); Benzodiazepines Screen Urine Negative (Negative); Cocaine Screen Urine Negative (Negative); Opiate Screen Urine Negative (Negative); PCP Screen Urine Negative (Negative); THC Screen Urine Positive (Negative)
[2021-11-09] MEDS: haloperidol inj 5 mg/mL INJ 1 mL IVP (14:25)
[2021-11-09 14:58] VITALS: BP 126/75; PULSE 84; RESP 16; O2SAT 96
== END 2021-11-09 14:59 | disposition home or self-care (01) ==
PROVIDERS: Emergency Provider Emergency Medicine; PCP Nurse Practitioner Family
DX: R11.15 Cyclical vomiting syndrome unrelated to migraine (principal); F12.90 Cannabis use, unspecified, uncomplicated
CPT/HCPCS: 71275; 74174; 80053; 80306; 81001; 83605; 83690; 84484; 85025; 93005; 96361; 96374; 96375; 96376; 99285; J1630; J2405; J7030; Q9967